=== PATIENT | male | born 1930 | race Caucasian/White ===

== ENCOUNTER 2018-05-20 09:36 | Emergency (ER) | payer OTHER ==
[~2018-05-20 09:36] MED LIST: ALER-CAP25 M1 PO; ALLOPURINOL100 MG PO; AMLODIPINE BESYL5 MG PO; Atarax PO; CARVEDILOL12.5 MG PO; CIPRO500 MG PO; COREG12.5 M1 PO; Colace PO; Coreg PO; DIABETA,MICRON2.5 MG PO; Dextrose 10% in Wate IV; Dextrose 50% in Wate IV; Diabeta,Micronase PO; ERGOCALCIF50000 UNIT PO; Ecotrin PO; GLIPIZIDE5 MG PO; GLUCAGEN1 MG IM/SC; GLYBURIDE5 MG PO; K-DUR10 MEQ PO; K-TAB10 MEQ PO; Klonopin PO; LANTUS 3 M100 UNITS1 SC; LASIX20 MG PO; LASIX40 MG PO; Lasix PO; Lovenox SC; MICRO-K10 ME1 PO; MICRONASE5 MG PO; Micro-K,K-Tab,K-Dur, PO; NEOSPORIN OINTM30 GM TP; NEXIUM40 MG PO; NITROSTAT0.4 MG SL; NORVASC5 MG PO; NOVOLOG PE100 UNITS/ SC; Nitrostat,NitroQuick SL; Norvasc PO; Oscal 500 w/Vitamin PO; PLAVIX75 MG PO; PRAVACHOL40 MG PO; PRAVASTATIN SOD20 MG PO; PROTONIX40 MG PO; Pravachol PO; TRAMADOL HCL50 MG PO; TRANSDERM-NITR0.4 MG TD; TYLENOL REGULA325 MG PO; Theragran PO; Tylenol Regular Stre PO; ULTRAM50 MG PO; Ultram PO; Vancocin Oral Soluti PO; ZOFRAN4 MG PO; ZYLOPRIM100 MG PO; Zyloprim PO
[2018-05-20 10:29] LABS: HEMATOCRIT 42.2 % (38.0-50.0); HEMOGLOBIN 14.5 G/DL (12.5-16.6); MCH 32.4 PG (29.0-34.0); MCHC 34.4 G/DL (30.0-36.0); MCV 94.2 FL (86-99); PLATELET COUNT 154 K/uL (156-360); RBC DIS.WIDTH-CV 13.1 % (11.8-14.6); RBC DIS.WIDTH-SD 45.3 % (39-53); RED BLOOD COUNT 4.48 M/uL (4.00-5.50); WHITE BLOOD COUNT 8.7 K/uL (4.1-10.2)
[2018-05-20 10:31] LABS: CHLORIDE 107 mEq/L (99-109); POTASSIUM 5.3 mEq/L (3.7-5.4); SODIUM 143 mEq/L (136-147)
[2018-05-20 10:34] LABS: GLUCOSE 181 mg/dL (70-99); PTT 26.3 SEC (25-37); TOTAL PROTEIN 6.6 g/dL (6.4-8.3)
[2018-05-20 10:35] LABS: TOTAL BILIRUBIN 0.6 mg/dL (0.0-1.0)
[2018-05-20 10:37] LABS: ALKALINE PHOSPHATASE 90 IU/L (3-129); CREATININE 2.3 mg/dL (0.6-1.3); GFR ESTIMATE (CALCULATED) 29 mL/min/ (58.99-99999)
[2018-05-20 10:38] LABS: UREA NITROGEN (BUN) 25 mg/dL (9-23)
[2018-05-20 10:39] LABS: AST (GOT) 16 IU/L (2-34)
[2018-05-20 10:40] LABS: ALT (GPT) 13 IU/L (3-49)
== END 2018-05-20 13:23 | disposition home or self-care (01) ==
LOC: TRA 09:36
PROVIDERS: Emergency Medicine
DX: S02.2XXA Fracture of nasal bones, initial encounter for closed fracture (principal); S51.012A Laceration without foreign body of left elbow, initial encounter; N28.9 Disorder of kidney and ureter, unspecified; M54.2 Cervicalgia; W18.30XA Fall on same level, unspecified, initial encounter; Z79.82 Long term (current) use of aspirin; E11.9 Type 2 diabetes mellitus without complications; F32.9 Major depressive disorder, single episode, unspecified; G89.29 Other chronic pain; I11.0 Hypertensive heart disease with heart failure; I50.9 Heart failure, unspecified; K21.9 Gastro-esophageal reflux disease without esophagitis; M10.9 Gout, unspecified; Z86.73 Personal history of transient ischemic attack (TIA), and cerebral infarction without residual deficits; Z95.5 Presence of coronary angioplasty implant and graft
CPT/HCPCS: 70450; 72125; 80053; 85027; 85610; 85730; 99281; 99285